=== PATIENT | female | born 1960 | race Caucasian/White ===

== ENCOUNTER 2020-05-02 04:22 | Emergency (ER) | payer MEDICARE ==
[~2020-05-02] VITALS: Ht 162.6 cm; Wt 54.5 kg
--- NOTE | 2020-05-02 05:03 | NUR ---
vasular US tech in room.
[2020-05-02 05:35] VITALS: BP 112/73
[2020-05-02] MEDS ORDERED: APIX5TAB3 PO (05:39)
[2020-05-02] MEDS ORDERED: apixaban 5mg tablet PO ONE (05:40)
[2020-05-03] MEDS ORDERED: IBUP-1985 PO (20:29)
== END 2020-05-02 06:02 | disposition home or self-care (01) ==
LOC: ER 04:23
DX: I82.402 Acute embolism and thrombosis of unspecified deep veins of left lower extremity (principal); Z59.0 Homelessness; Z86.711 Personal history of pulmonary embolism; Z85.9 Personal history of malignant neoplasm, unspecified
CPT/HCPCS: 93971; 99284

== ENCOUNTER 2020-05-03 18:31 | Emergency (ER) | payer MEDICARE ==
[~2020-05-03] VITALS: Ht 165.1 cm; Wt 54.5 kg
[~2020-05-03 18:31] MED LIST: APIX5TAB3 PO
[2020-05-03] MEDS ORDERED: ketorolac tromethamine 15mg/ml inj. IM ONE (19:35)
[2020-05-03 20:20] VITALS: BP 117/69
[2020-05-03] MEDS ORDERED: IBUP-1985 PO (20:29)
== END 2020-05-03 20:37 | disposition home or self-care (01) ==
LOC: ER 18:32
DX: I82.401 Acute embolism and thrombosis of unspecified deep veins of right lower extremity (principal); Z86.711 Personal history of pulmonary embolism; Z59.0 Homelessness; Z79.01 Long term (current) use of anticoagulants; Z79.899 Other long term (current) drug therapy
CPT/HCPCS: 71045; 96372; 99283; J1885

== ENCOUNTER 2020-05-15 16:42 | Emergency (ER) | payer MEDICARE ==
[~2020-05-15] VITALS: Ht 162.6 cm; Wt 53.0 kg
[~2020-05-15 16:42] MED LIST changes: +IBUP-1985 PO
[2020-05-15] MEDS ORDERED: dexamethasone sod phosphate 10mg/ml inj IM STA (18:26)
[2020-05-15] MEDS ORDERED: ketorolac tromethamine 15mg/ml inj. IM ONE (18:30)
[2020-05-15 18:48] VITALS: BP 99/59
== END 2020-05-15 18:51 | disposition home or self-care (01) ==
LOC: ER 16:42
DX: G89.29 Other chronic pain (principal); M79.672 Pain in left foot; M79.89 Other specified soft tissue disorders; Z13.89 Encounter for screening for other disorder; Z86.711 Personal history of pulmonary embolism; Z85.9 Personal history of malignant neoplasm, unspecified; Z59.0 Homelessness; Z86.718 Personal history of other venous thrombosis and embolism; Z79.899 Other long term (current) drug therapy
CPT/HCPCS: 96372; 99284; J1100; J1885

== ENCOUNTER 2020-06-19 11:36 | Emergency (ER) | payer MEDICARE ==
[~2020-06-19] VITALS: Ht 165.1 cm; Wt 54.5 kg
[2020-06-19] MEDS ORDERED: LIDOcaine 1% W/epiNEPHrine 1:200,000 10ml vial IJ ONE (12:35)
[2020-06-19] MEDS ORDERED: TETanus/Pertussis (Acell)/Diphther VAC/PF (Tdap-Adult) 0.5ml syringe IMVAC ONE (12:35)
[2020-06-19] MEDS ORDERED: CEPH250T PO (13:01)
--- NOTE | 2020-06-19 13:25 | NUR ---
Pt is awaiting discharge to home. Pt's wound has been dressed and is clean, dry, and intact.
[2020-06-19 13:45] VITALS: BP 139/74
== END 2020-06-19 13:48 | disposition home or self-care (01) ==
LOC: ER 11:36
DX: S90.451A Superficial foreign body, right great toe, initial encounter (principal); M79.7 Fibromyalgia; Z86.718 Personal history of other venous thrombosis and embolism; Z86.711 Personal history of pulmonary embolism; Z59.0 Homelessness; W22.8XXA Striking against or struck by other objects, initial encounter; Y93.89 Activity, other specified; Y92.89 Other specified places as the place of occurrence of the external cause; Y99.9 Unspecified external cause status
CPT/HCPCS: 90471; 90715; 99283

== ENCOUNTER 2020-07-02 20:10 | Emergency (ER) | payer MEDICARE ==
[~2020-07-02] VITALS: Ht 162.6 cm; Wt 54.5 kg
--- NOTE | 2020-07-02 22:04 | NUR ---
cardiovascular specialist at bedside
[2020-07-02] MEDS ORDERED: METH4TAB3 PO (22:24)
[2020-07-02] MEDS ORDERED: HYDR28CR14 TOP (22:24)
[2020-07-02 23:05] VITALS: BP 133/67
== END 2020-07-02 23:06 | disposition home or self-care (01) ==
LOC: ER 20:10
DX: M79.605 Pain in left leg (principal); L23.7 Allergic contact dermatitis due to plants, except food; F17.200 Nicotine dependence, unspecified, uncomplicated; Z85.9 Personal history of malignant neoplasm, unspecified; Z86.711 Personal history of pulmonary embolism; Z86.718 Personal history of other venous thrombosis and embolism; Z72.89 Other problems related to lifestyle; Z59.0 Homelessness; Z79.899 Other long term (current) drug therapy
CPT/HCPCS: 71045; 93005; 93971; 99284